=== PATIENT | female | born 1975 | race Caucasian/White ===

== ENCOUNTER → 2020-09-23 | Outpatient (CLI) | payer OTHER, SELFPAY | END | disposition home or self-care (01) | LOC: LABSPEC 17:42 | PROVIDERS: PCP Family Medicine; Referring Provider Family Medicine; Visit Provider Family Medicine | DX: Z20.828 Contact with and (suspected) exposure to other viral communicable diseases (principal) | CPT/HCPCS: 87635; C9803; U0003 ==

== ENCOUNTER 2021-02-14 14:07 | Outpatient (RCR) | payer OTHER, SELFPAY ==
[2016-02-03 15:45] VITALS: BMI 29.9
== END 2021-04-22 23:59 ==
LOC: IMMUN 14:07
PROVIDERS: PCP Family Medicine; Visit Provider Family Medicine
DX: Z23 Encounter for immunization (principal)
CPT/HCPCS: 0001A; 0002A; 91300

== ENCOUNTER 2024-07-13 15:03 | Emergency (ER) | payer OTHER, SELFPAY ==
[2024-07-13 15:04] VITALS: BP 122/88; PULSE 72; RESP 16; TEMP 36; O2SAT 98; BMI 33.9
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
--- NOTE | 2024-07-13 15:28 | CT_ITS ---
INDICATION: injury w/ neg XR EXAMINATION: CT Ankle W/O Contrast Injection TECHNIQUE: Routine noncontrast bone CT protocol was performed of the left ankle. 2-D reformats were performed by the technologist. The protocol utilizes one or more of the following dose reduction techniques: automated exposure control, adjustment of mA and/or kV according to patient size,and/or use of iterative reconstruction technique. IV Contrast dosage and agent: None. RADIATION DOSAGE (If Supplied By Facility): CTDIvol = ( 15.35 ) mGy, DLP = ( 334.57 ) mGycm COMPARISON: FINDINGS: SOFT TISSUES: Mild subcutaneous edema. No radiopaque foreign body. BONES/JOINTS: No acute fracture or subluxation. Normal alignment. Preservation of the joint space. No sclerotic or destructive changes. CT/Extremity Lower without Contra IMPRESSION: No evidence of acute fracture. Mild subcutaneous edema. Electronically Signed: Herrera Allen DO at 16:55 EDT Reading Location ID and State: [facility] / [place] Tel [phone], Service support ,
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
[2024-07-13 17:04] VITALS: BP 115/67; PULSE 61; RESP 16; O2SAT 99
[2024-07-13 17:37] VITALS: BP 112/62; PULSE 60; RESP 15; TEMP 36.4; O2SAT 99
== END 2024-07-13 17:39 | disposition home or self-care (01) ==
PROVIDERS: Emergency Provider Emergency Medicine; PCP Family Medicine; Visit Provider Emergency Medicine
DX: S76.012A Strain of muscle, fascia and tendon of left hip, initial encounter (principal); S93.402A Sprain of unspecified ligament of left ankle, initial encounter; M51.36 Other intervertebral disc degeneration, lumbar region; V86.49XA Person injured while boarding or alighting from other special all-terrain or other off-road motor vehicle, initial encounter
CPT/HCPCS: 72131; 73700; 99283